=== PATIENT | female | born 1965 | race Caucasian/White ===

== ENCOUNTER 2023-11-05 20:15 | Emergency (ER) | payer BC, SELFPAY ==
[2023-11-05 20:24] VITALS: BP 176/95; PULSE 97; TEMP 36.7; O2SAT 97; BMI 28.3
--- NOTE | 2023-11-05 20:44 | ED.BACK1 ---
HPI HPI - Back Pain/Injury General Chief Complaint: Extremity Problem, Nontraumatic Stated Complaint: severe lower back pain, down legs Time Seen by Provider: 11/05/23 20:29 Source: patient Mode of arrival: Wheelchair Limitations: no limitations History of Present Illness HPI Narrative: patient presents complaining of pain across her lower back and down her left leg. Ongoing for past 1-2 months. has been seen by her orthopedic surgeon who performed her left LESLI one year ago. States he wanted to order a MRI but insurance declined the procedure and she has been going to PT. PT has help some but pain continues. She has been going to work and tolerating the pain. When the pain increases usually she can sit and it eases up but no tonight. She has taken ibuprofen and tylenol without reflief. Her leg is not weak. No problems controlling her bowel or bladder. Related Data Home Medications ?Medication ?Instructions ?Recorded ?Confirmed acetaminophen 325 mg tablet 650 mg PO Q6H PRN pain 11/05/23 11/05/23 (Tactinal) ibuprofen 800 mg tablet (IBU) 800 mg PO DAILY PRN pain 11/05/23 11/05/23 Allergies Allergy/AdvReac Type Severity Reaction Status Date / Time No Known Drug Allergies Allergy Verified 11/05/23 20:34 Opioid HPI Opioid Management Most Recent Opioid Data: No Data to Display Review of Systems ROS Status of ROS 10 or more systems reviewed and unremarkable except as noted in history and below Exam Constitutional Vital Signs, click to edit/add: Last Vital Signs Temp 98.0 F 11/05/23 20:24 Pulse 97 H 11/05/23 20:24 Resp 18 11/05/23 20:24 BP 176/95 H 11/05/23 20:24 Pulse Ox 97 11/05/23 20:24 O2 Del Method Room Air 11/05/23 20:24 Common normals: no apparent distress, average body habitus, oriented x3, no limitations, healthy appearing, alert and well nourished Eye Common normals: EOMs intact bilaterally and conjunctivae normal Respiratory Common normals: normal respiratory effort, no retractions, no use of accessory muscles and clear to auscultation bilaterally Cardio Common normals: regular rate, regular rhythm, S1 normal heart sound and S2 normal heart sound GI Common normals: Normal to inspection, nondistended, normoactive bowel sounds present, soft to palpation and non-tender Back & Pelvis Other: mild pain across her lower back Extremity Common normals: normal to inspection and full ROM Neuro Common normals: oriented x3, CN's II-XII intact bilaterally, moves all extremities, no focal motor deficits, no sensory deficits noted and deep tendon reflexes 2+ bilaterally (DTRs at patella and achilles 0) Motor exam: strength 5/5 throughout (neg foot drop) Course Vital Signs Vital signs: Vital Signs Temperature 98.0 F 11/05/23 20:24 Pulse Rate 97 H 11/05/23 20:24 Respiratory Rate 18 11/05/23 20:24 Blood Pressure 176/95 H 11/05/23 20:24 Pulse Oximetry 97 11/05/23 20:24 Oxygen Delivery Method Room Air 11/05/23 20:24 Temperature 98.0 F 11/05/23 20:24 Pulse Rate 97 H 11/05/23 20:24 Respiratory Rate 18 11/05/23 20:24 Blood Pressure 176/95 H 11/05/23 20:24 Pulse Oximetry 97 11/05/23 20:24 Oxygen Delivery Method Room Air 11/05/23 20:24 MDM - Back Pain/Injury MDM Narrative Medical decision making narrative: patient presents complaining of pain of her lower back and radiating down her left leg for past 1-2 months. No neuro deficits. States she is constantly in pain but normally tolerates it . When the pain increases she can usually sit for a while and it eases up. Did not work tonight and so she came here. treated with magnesium and solumedrol and patient decreased to tolerable level again. Patient did not want any thing stronger for pain. Discharged with a prescription of prednisone and advised to follow up with her doctor Lab Data Labs: Lab Results 11/05/23 Range/Units 20:51 WBC 11.1 H (4.0-11.0) 10^3/uL RBC 4.18 L (4.20-5.40) 10^6/uL Hgb 14.9 (12.0-16.0) g/dL Hct 43.8 (36.0-48.0) % MCV 104.8 H (81.0-99.0) fL MCH 35.6 H (26.7-34.0) pg MCHC 34.0 (29.9-35.2) g/dL RDW 12.6 (11.0-15.0) % Plt Count 186 (150-450) 10^3/uL MPV 11.7 (9.5-13.5) fL Neut % (Auto) 62.8 (43.0-75.0) % Lymph % (Auto) 25.4 (20.5-60.0) % [place] % (Auto) 8.2 (1.7-12.0) % Eos % (Auto) 2.3 (0.9-7.0) % Baso % (Auto) 0.9 (0.2-2.0) % Neut # (Auto) 7.0 H (1.4-6.5) 10^3/uL Lymph # (Auto) 2.8 (1.2-3.8) 10^3/uL [place] # (Auto) 0.9 H (0.3-0.8) 10^3/uL Eos # (Auto) 0.3 (0.0-0.7) 10^3/uL Baso # (Auto) 0.1 (0.0-0.1) 10^3/uL Abs Immat Gran (auto) 0.04 H (0.00-0.03) 10^3/uL Imm/Tot Granulo (auto) 0.4 (0.0-0.5) % ESR 23 (<=30) mm/hr Sodium 141 (136-145) mmol/L Potassium 3.9 (3.5-5.1) mmol/L Chloride 104 (98-107) mmol/L Carbon Dioxide 30.6 (21.0-32.0) mmol/L Anion Gap 10.3 BUN 14.0 (7.0-18.0) mg/dL Creatinine 1.17 H (0.55-1.02) mg/dL Est GFR ( Amer) 58 L (>=60) Est GFR (Non-Af Amer) 48 L (>=60) BUN/Creatinine Ratio 12.0 Glucose 152 H (74-106) mg/dL Calcium 9.4 (8.5-10.1) mg/dL C-Reactive Protein 1.04 H (<=0.50) mg/dL Discharge Plan Discharge Stand Alone Forms: Portal Instructions Chief Complaint: Extremity Problem, Nontraumatic Clinical Impression: Acute left-sided back pain with sciatica Patient Disposition: Home, Self-Care Prescriptions / Home Meds: No Action ibuprofen [IBU] 800 mg tablet 800 mg PO DAILY PRN (Reason: pain) acetaminophen [Tactinal] 325 mg tablet 650 mg PO Q6H PRN (Reason: pain) Print Language: Estonian Instructions: Lower Back Exercises (ED) Additional Instructions: follow up with your doctor wednesday Referrals: Physician,Non-Staff, MD [Physician] - 1 week
[2023-11-05 20:59] LABS: Basophils Absolute Auto 0.1 10^3/uL (0.0-0.1); Basophils Percent Auto 0.9 % (0.2-2.0); Eosinophils Absolute Auto 0.3 10^3/uL (0.0-0.7); Eosinophils Percent Auto 2.3 % (0.9-7.0); Hematocrit 43.8 % (36.0-48.0); Hemoglobin 14.9 g/dL (12.0-16.0); Immature Granulocytes Abs Auto 0.04 10^3/uL (0.00-0.03); Immature Granulocytes Pct Auto 0.4 % (0.0-0.5); Lymphocytes Absolute Auto 2.8 10^3/uL (1.2-3.8); Lymphocytes Percent Auto 25.4 % (20.5-60.0); Mean Corpuscular Hemoglobin 35.6 pg (26.7-34.0); Mean Corpuscular Volume 104.8 fL (81.0-99.0); Mean Platelet Volume 11.7 fL (9.5-13.5); Monocytes Absolute Auto 0.9 10^3/uL (0.3-0.8); Monocytes Percent Auto 8.2 % (1.7-12.0); Neutrophils Percent Auto 62.8 % (43.0-75.0); Platelet Count 186 10^3/uL (150-450); Red Blood Count 4.18 10^6/uL (4.20-5.40); Red Cell Distribution Width 12.6 % (11.0-15.0); White Blood Count 11.1 10^3/uL (4.0-11.0)
[2023-11-05 21:06] LABS: Erythrocyte Sedimentation Rate 23 mm/hr (<=30)
[2023-11-05 21:15] LABS: Anion Gap 10.3; C Reactive Protein 1.04 mg/dL (<=0.50); Calcium 9.4 mg/dL (8.5-10.1); Carbon Dioxide 30.6 mmol/L (21.0-32.0); Chloride 104 mmol/L (98-107); Estimated GFR (African America 58 (>=60); Estimated GFR (Non-African Ame 48 (>=60); Glucose 152 mg/dL (74-106); Potassium 3.9 mmol/L (3.5-5.1); Sodium 141 mmol/L (136-145)
[2023-11-05] MEDS: GABAPENTIN 300 MG CAPSULE PO (21:23)
[2023-11-05] MEDS: METHYLPREDNISOLONE SOD SUCC PF 125 MG/2 ML VIAL IVP (21:23)
[2023-11-05] MEDS: MAGNESIUM SULFATE IN WATER 2 GM/50 ML PREMIX IV (21:23)
== END 2023-11-05 22:49 | disposition home or self-care (01) ==
PROVIDERS: Emergency Provider Internal Medicine; PCP Internal Medicine
DX: M54.42 Lumbago with sciatica, left side (principal); Z96.642 Presence of left artificial hip joint
CPT/HCPCS: 36415; 80048; 85025; 85652; 86140; 96374; 96375; 99284; J2919

== ENCOUNTER 2023-12-08 12:52 | Outpatient (RCR) | payer BC, SELFPAY | END 2023-12-28 16:01 | disposition home or self-care (01) | LOC: PT 12:52 | PROVIDERS: PCP Internal Medicine; Visit Provider Orthopaedic Surgery | DX: M47.896 Other spondylosis, lumbar region (principal); M54.50 Low back pain, unspecified; G89.29 Other chronic pain | CPT/HCPCS: 97110; 97112; 97140; 97162 ==